=== PATIENT | male | born 1990 | race Caucasian/White ===

== ENCOUNTER 2016-07-19 22:14 | Emergency (ER) | payer BC, OTHER ==
[2016-07-19 22:24] VITALS: BP 150/83; PULSE 93; TEMP 98.7; BMI 28.5
[2016-07-19 23:10] LABS: BASOPHIL 0.4 % (0-2.0); EOSINOPHIL 0.8 % (0-4.5); MCH 33.5 pg (25.7-33.7); MCHC 35.5 g/dl (32.0-35.9); MEAN CELL VOLUME 94.4 fl (80-96); MEAN PLT VOLUME 9.5 fl (7.5-11.1); NEUTROPHILS 62.2 % (42.8-82.8); PLATELET COUNT 182 K/MM3 (134-434); WHITE BLOOD COUNT 7.3 K/mm3 (4.0-10.0)
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
[2016-07-20 00:03] LABS: HIV 1 & 2 AB NEGATIVE; HIV 1 AGp24 NEGATIVE
[2016-07-20 00:45] LABS: LDH 184 U/L (87-241); SGPT/ALT 73 U/L (12-78)
== END 2016-07-19 23:39 | disposition home or self-care (01) ==
LOC: JERFT 22:14 → JER 22:14 → JERFT 23:39
DX: Z77.21 Contact with and (suspected) exposure to potentially hazardous body fluids (principal); Y35.891A Legal intervention involving other specified means, law enforcement official injured, initial encounter; Y93.89 Activity, other specified; Y92.238 Other place in hospital as the place of occurrence of the external cause; Y99.0 Civilian activity done for income or pay
CPT/HCPCS: 36415; 83615; 84460; 85025; 86704; 86706; 87340; 87389; 99281-25

== ENCOUNTER 2016-10-15 02:32 | Emergency (ER) | payer OTHER ==
[2016-10-15 03:28] VITALS: BP 144/77; PULSE 84; TEMP 98.1; BMI 29.2
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
== END 2016-10-15 05:25 | disposition home or self-care (01) ==
LOC: JER 02:32
DX: S63.501A Unspecified sprain of right wrist, initial encounter (principal); Y35.811A Legal intervention involving manhandling, law enforcement official injured, initial encounter; Y93.89 Activity, other specified; Y92.480 Sidewalk as the place of occurrence of the external cause; Y99.0 Civilian activity done for income or pay
CPT/HCPCS: 99281-25

== ENCOUNTER 2017-03-29 22:53 | Emergency (ER) | payer OTHER ==
[2017-03-29 23:06] VITALS: BP 144/95; PULSE 136; TEMP 97; BMI 26.7
[2017-03-29] MEDS ORDERED: HIV POST EXPOSURE PROPHYLAXIS KIT NR ONE (23:23)
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
[2017-03-30 00:52] LABS: ALBUMIN 4.7 g/dl (3.4-5.0); ANION GAP 10 (8-16); BILIRUBIN,TOTAL 0.7 mg/dL (0.2-1.0); CO2 24 mmol/L (21-32); GLUCOSE,RANDOM 103 mg/dL (74-106); SGPT/ALT 87 U/L (12-78); TOT PROT 7.9 g/dl (6.4-8.2)
[2017-03-30 00:53] LABS: ALK PHOS 66 U/L (45-117)
[2017-03-30] MEDS ORDERED: RALTEGRAVIR POTASSIUM 400 MG TAB PO ONE (01:01)
[2017-03-30] MEDS ORDERED: EMTRICITABINE 200MG/TENOFOVIR 300MG PO ONE (01:01)
[2017-03-30 01:05] LABS: SGOT/AST 46 U/L (15-37)
[2017-03-30] MEDS ORDERED: BACITRACIN 15 GM TUBE TOPICAL OINTMENT TP ONE (01:45)
[2017-03-30] MEDS ORDERED: BACITRACIN 0.9 GM PACKET ONE (01:48)
== END 2017-03-30 02:30 | disposition home or self-care (01) ==
LOC: JER 22:53
DX: S80.212A Abrasion, left knee, initial encounter (principal); S50.312A Abrasion of left elbow, initial encounter; S50.311A Abrasion of right elbow, initial encounter; Z77.21 Contact with and (suspected) exposure to potentially hazardous body fluids; Y35.811A Legal intervention involving manhandling, law enforcement official injured, initial encounter; Y93.89 Activity, other specified; Y92.89 Other specified places as the place of occurrence of the external cause; Y99.8 Other external cause status
CPT/HCPCS: 36415; 73070-TC-LT; 73562-TC-LT; 80053; 80074; 99281-25

== ENCOUNTER 2017-09-24 18:20 | Emergency (ER) | payer OTHER ==
[2017-09-24 18:37] VITALS: BP 154/81; PULSE 110; TEMP 98.7; BMI 28.5
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
[2017-09-24] MEDS ORDERED: BACITRACIN 15 GM TUBE TOPICAL OINTMENT ONE (19:08)
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
== END 2017-09-24 20:33 | disposition home or self-care (01) ==
LOC: JERFT 18:20 → JER 18:20 → JERFT 20:33
DX: S60.512A Abrasion of left hand, initial encounter (principal); S50.312A Abrasion of left elbow, initial encounter; S80.211A Abrasion, right knee, initial encounter; W25.XXXA Contact with sharp glass, initial encounter; Y93.89 Activity, other specified; Y92.89 Other specified places as the place of occurrence of the external cause; Y99.0 Civilian activity done for income or pay; Y35.491A Legal intervention involving other sharp objects, law enforcement official injured, initial encounter
CPT/HCPCS: 99281-25

== ENCOUNTER 2018-11-14 10:41 | Emergency (ER) | payer OTHER | END 2018-11-14 11:30 | disposition home or self-care (01) | LOC: JERFT 10:41 ==

== ENCOUNTER 2020-01-15 17:43 | Emergency (ER) | payer BC, OTHER ==
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
[2020-01-15 18:04] VITALS: BP 130/89; PULSE 85; BMI 26.2
[2020-01-15 18:42] VITALS: TEMP 98.5
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
== END 2020-01-15 19:58 | disposition home or self-care (01) ==
LOC: JER 17:43 → JERFT 17:43
DX: S09.90XA Unspecified injury of head, initial encounter (principal)
CPT/HCPCS: 70450-TC; 99284-25

== ENCOUNTER 2020-02-14 20:49 | Emergency (ER) | payer BC, OTHER ==
--- OUTSIDE RECORDS SUMMARY | 2020-02-14 20:56 | XMS ---
:1990 Author Organization [facility] Support Name Relationship Address Phone KARTHIK, [employer] Unavailable [address] [place] [address] [employer] Unavailable [address] [place] [address] VIRGILIO AHMADI MOTHER [address] [place] [address] SHYA AHMADI FATHER [address] [place] [address] SHAY AHMADI Spouse [address] [place] [address] Re-disclosure Warning The records that you are about to access may contain information from federally- assisted alcohol or drug abuse programs. If such information is present, then the following federally mandated warning applies: This information has been disclosed to you from records protected by federal confidentiality rules (42 CFR part 2). The federal rules prohibit you from making any further disclosure of this information unless further disclosure is expressly permitted by the written consent of the person to whom it pertains or as otherwise permitted by 42 CFR part 2. A general authorization for the release of medical or other information is NOT sufficient for this purpose. The Federal rules restrict any use of the information to criminally investigate or prosecute any alcohol or drug abuse patient.The records that you are about to access may contain highly sensitive health information, the redisclosure of which is protected by Article 27-F of the [facility] Public Health law. If you continue you may haveaccess to information: Regarding HIV / AIDS; Provided by facilities licensed or operated by the [facility] Office of Mental Health; or Provided by the [facility] Office for People With Developmental Disabilities. If such information is present, then the following [facility] mandated warning applies: This information has been disclosed to you from confidential records which are protected by state law. State law prohibits you from making any further disclosure of this information without the specific written consent of the person to whom it pertains, or as otherwise permitted by law. Any unauthorized further disclosure in violation of state law may result in a fine or mcfp sentence or both. A general authorization for the release of medical or other information is NOT sufficient authorization for further disclosure. Insurance Providers Payer name Policy type Policy ID Covered Covered alliance party's Policy P teja / Coverage alliance party ID relationship to [employer] ormation type boyle BC PPO [id number] SP [id number] [place] [id number] SP [id number] HEALTHCARE PPO POMCO RISK [id number] SP [id number] MANAGEMENT POMCO RISK [id number] SP [id number] MANAGEMENT Results ID Date Data Source [id number] 10/27/2019 10:10:00 AM EDT [facility] Name Value Range Interpretation Description Data Sup porting Code Source(s) Document(s ) SARS [facility] CORONAVIRUS 2 RNA This lab was ordered by [facility] and reported by [facility]. ID Date Data Source [id number] 10/03/2019 01:19:00 PM EDT [facility] Name Value Range Interpretation Code Description Data Karin rce(s) Supporting Document(s ) SARS-COV-2 [facility] This lab was ordered by [facility] and reported by [facility]. Procedure
[2020-02-14 21:13] VITALS: BP 121/68; PULSE 80; TEMP 98.8; BMI 29.2
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
== END 2020-02-14 22:09 | disposition home or self-care (01) ==
LOC: FER 20:49
DX: S43.401A Unspecified sprain of right shoulder joint, initial encounter (principal); S63.501A Unspecified sprain of right wrist, initial encounter
CPT/HCPCS: 73030-TC-RT-FY; 73110-TC-RT-FY; 99284-25

== ENCOUNTER 2020-11-08 20:26 | Emergency (ER) | payer BC, OTHER ==
[2020-11-08 20:45] VITALS: BP 158/100; PULSE 112; TEMP 99.2; BMI 29.2
== END 2020-11-08 22:42 | disposition home or self-care (01) ==
LOC: FER 20:26
DX: S63.601A Unspecified sprain of right thumb, initial encounter (principal)
CPT/HCPCS: 73140-TC-RT-FY; 99284-25

== ENCOUNTER 2021-05-31 19:38 | Emergency (ER) | payer BC, OTHER ==
[2021-05-31 19:45] VITALS: BP 157/101; PULSE 77; TEMP 97.9; BMI 29.2
[2021-05-31 20:36] LABS: ALBUMIN 4.5 g/dl (3.4-5.0); BILIRUBIN,TOTAL 1.3 mg/dl (0.2-1); CALCIUM 9.4 mg/dl (8.5-10); CREATININE 0.8 mg/dl (0.55-1.3); MAGNESIUM 1.8 mg/dL (1.8-2.4); TOT PROT 6.9 g/dl (6.4-8.2)
[2021-05-31 21:10] LABS: BASO % 0.7 % (0-2.0); EOS % 0.9 % (0-4.5); HEMATOCRIT 43.4 % (35.4-49); HEMOGLOBIN 15.4 GM/dL (11.7-16.9); MCH 33.7 pg (25.7-33.7); MCHC 35.5 g/dl (32.0-35.9); MEAN PLT VOLUME 8.9 fl (7.5-11.1); MONO % 12.2 % (3.8-10.2); NEUT % 64.2 % (42.8-82.8); PLATELET COUNT 186 10^3/uL (134-434); RBC 4.57 M/mm3 (4.00-5.60); RDW 12.8 % (11.9-15.9); WHITE BLOOD COUNT 5.8 K/mm3 (4.0-10.0)
== END 2021-05-31 21:27 | disposition home or self-care (01) ==
LOC: FER 19:38
DX: R00.2 Palpitations (principal)
CPT/HCPCS: 36415; 80053; 82550; 82553; 83735; 84484; 85025; 93005; 99284-25